=== PATIENT | female | born 1980 | race Caucasian/White ===

== ENCOUNTER → 2017-01-30 | Outpatient (CLI) | payer BC ==
--- NOTE | 2017-01-30 13:46 | RAD ---
DATE: 01/30/17 EXAM: MAMMO KELLY SCREENING BILATERAL HISTORY: Routine screening COMPARISON: None available, this is a baseline exam. This study was interpreted with the benefit of Computerized Aided Detection (CAD). TECHNIQUE: Routine 2-D and 3-D screening mammograms of both breasts are obtained. FINDINGS: Breast Density: HETERO The breast parenchyma is heterogenously dense, which could reduce sensitivity of mammography. Breast parenchyma level C.. There is a area of asymmetric density in the left outer breast which is a confluent shadow. There is however a small nodule in the outer left breast, best seen on CC tomographic image #13 No suspicious clustered microcalcifications or architectural distortion seen. Skin and nipples are intact IMPRESSION: Tiny nodule in the outer left breast. This is likely a cyst or lymph node. Ultrasound of the left breast may be obtained for confirmation. BI-RADS CATEGORY: 0 INCOMPLETE: NEED ADDITIONAL IMAGING EVALUATION AND/OR PRIOR MAMMOGRAMS FOR COMPARISON. RECOMMENDED FOLLOW-UP: ADD ADDITIONAL IMAGING. Left breast ultrasound PQRS compliance statement: Patient information was entered into a reminder system with a target due date for the next mammogram. Mammography is a sensitive method for finding small breast cancers, but it does not detect them all and is not a substitute for careful clinical examination. A negative mammogram does not negate a clinically suspicious finding and should not result in delay in biopsying a clinically suspicious abnormality. "Our facility is accredited by the [employer]ammography [employer]."
== END | disposition home or self-care (01) ==
LOC: MAMMO 08:40
PROVIDERS: ATTEND Nurse Practitioner Family
DX: Z12.31 Encounter for screening mammogram for malignant neoplasm of breast (principal)
CPT/HCPCS: 77063; G0202; 77067

== ENCOUNTER → 2017-02-09 | Outpatient (CLI) | payer BC ==
--- NOTE | 2017-02-09 09:03 | RAD ---
LEFT BREAST SONOGRAPHY Clinical indications: Further evaluation of nodule seen within the lateral aspect of left breast. Comparison: Mammogram dated January 30, 2017. Findings: High-resolution sonography of the lateral one half left breast was performed. At the 1:00 position 8 cm the nipple, a 6 mm lymph node is seen which demonstrates normal lymph node sonographic architecture. This corresponds to mammographic finding. IMPRESSION: Benign-appearing intramammary lymph node of the 1:00 position left breast. This is benign finding. Recommend routine screening mammography in one year. BI-RADS Category 3 benign finding. The patient information was entered into the data reminder system with a target due date for the next mammogram of January 31, 2018.
== END | disposition home or self-care (01) ==
LOC: US 07:52
PROVIDERS: ATTEND Nurse Practitioner Family
DX: R92.8 Other abnormal and inconclusive findings on diagnostic imaging of breast (principal)
CPT/HCPCS: 76641

== ENCOUNTER → 2017-06-05 | Outpatient (CLI) | payer BC ==
--- NOTE | 2017-06-05 15:59 | RAD ---
3 views of the abdomen and pelvis 06/05/2017 Indication: Abdominal pain Comparison study: None Discussion: The bowel gas pattern is nonobstructive. No pneumoperitoneum is identified. No acute osseous changes are seen. Intrauterine device noted in the pelvis. Impression: No radiographic evidence of acute intra-abdominal abnormality
[2017-06-05 16:00] LABS: BASO % 0 % (0-3); EOS # 0.1 x10^3/uL (0.0-0.7); EOS % 1 % (0-3); HEMATOCRIT 38.3 % (36.0-47.0); HEMOGLOBIN 12.6 g/dL (12.0-15.5); LYMPH % 17 % (24-48); MEAN CORPUSCULAR HEMOGLOBIN 28 pg (25-35); MEAN CORPUSCULAR HGB CONC 33 g/dL (31-37); MEAN CORPUSCULAR VOLUME 84 fL (79-100); MONO # 0.9 x10^3/uL (0.0-1.1); MONO % 8 % (0-9); NEUT # 8.3 x10^3uL (1.8-7.7); NEUT % 73 % (31-73); PLATELET COUNT 236 x10^3/uL (140-400); RED BLOOD COUNT 4.58 x10^6/uL (3.50-5.40); RED CELL DISTRIBUTION WIDTH 13.7 % (11.5-14.5); WHITE BLOOD COUNT 11.3 x10^3/uL (4.0-11.0)
[2017-06-05 16:09] LABS: ALBUMIN 3.7 g/dL (3.4-5.0); ALBUMIN/GLOBULIN RATIO 0.9 (1.0-1.7); CALCIUM 8.8 mg/dL (8.5-10.1); CREATININE 0.8 mg/dL (0.6-1.0); GFR 79.9; POTASSIUM 3.8 mmol/L (3.5-5.1); TOTAL BILIRUBIN 0.3 mg/dL (0.2-1.0)
[2017-06-05 17:05] LABS: SEDIMENTATION RATE 31 (0-25)
== END | disposition home or self-care (01) ==
LOC: PMG 15:03
PROVIDERS: ATTEND Physician Assistant
DX: K57.92 Diverticulitis of intestine, part unspecified, without perforation or abscess without bleeding (principal); R10.30 Lower abdominal pain, unspecified
CPT/HCPCS: 36415; 74021; 80053; 82150; 83690; 85025; 85651

== ENCOUNTER → 2017-06-08 | Outpatient (CLI) | payer BC ==
[~2017-06-08] MED LIST: IOHEXOL 240 MG/ML 50ML VIAL. ONE; IOHEXOL 300 MG/ML 75 ML VIAL. IV ONE
--- NOTE | 2017-06-08 16:14 | RAD ---
Ultrasound pelvis with transvaginal Clinical indication: Pelvic pain. Comparison: CT abdomen and pelvis 06/02/2011, ultrasound 06/01/2011. Findings: Uterus measures 8.6 x 4.6 x 5.8 cm. Endometrium is normal thickness for age measuring 0.4 cm. There are few cervical nabothian cysts. Intrauterine device is noted. Right ovary measures 3.4 x 2.3 x 1.8 cm with normal color Doppler imaging. Left ovary measures 2.4 x 1.9 x 2.2 cm with normal color Doppler imaging. No significant pelvic free fluid. Impression: 1. Intrauterine device. 2. Otherwise unremarkable pelvic sonogram.
--- NOTE | 2017-06-09 10:59 | RAD ---
EXAM: CT ABDOMEN/PELVIS WITH CONTRAST. HISTORY: Lower abdominal pain. History of diverticulitis. TECHNIQUE: Computed tomography of the abdomen and pelvis was performed after the intravenous administration of 75 mL Omnipaque 300. COMPARISON: June 02, 2011. FINDINGS: Lung windows through the visualized portions of the bases reveal mild atelectasis. Bone windows reveal no suspicious lesions. Wall thickening and inflammation about the sigmoid colon indicate moderate acute diverticulitis. The involved side appears just distal to the prior region of involvement on the study of 2011. There is no drainable collection or free perforation. There is no obstruction. The appendix is not inflamed. The liver, gallbladder, kidneys, adrenal glands, pancreas and spleen are unremarkable. There are no pathologically enlarged lymph nodes. Note is made of a circumaortic left renal vein. An intrauterine device is in expected position. IMPRESSION: 1. Moderate acute distal sigmoid diverticulitis. No drainable collection. These findings were called to Alison by Anthony Escobar on 06/09/2017 at 10:40 AM. *One or more of the following individualized dose reduction techniques were utilized for this examination: 1. Automated exposure control. 2. Adjustment of the mA and/or kV according to patient size. 3. Use of iterative reconstruction technique. Electronically signed by: Merly Escobar MD (06/09/2017 10:55 AM) [facility]
== END | disposition home or self-care (01) ==
LOC: US 14:44
PROVIDERS: ATTEND Obstetrics & Gynecology
DX: N88.8 Other specified noninflammatory disorders of cervix uteri (principal); K57.32 Diverticulitis of large intestine without perforation or abscess without bleeding; Z97.5 Presence of (intrauterine) contraceptive device
CPT/HCPCS: 74177; 76830; 76856; Q9966; Q9967

== ENCOUNTER 2018-04-30 19:44 | Emergency (ER) | payer BC ==
--- NOTE | 2018-04-30 19:59 | ED.ADGEN ---
Past History Past Medical History: Sinusitis Adult General Chief Complaint Chief Complaint ".. I am been sick off and on for a month.. I got headache, face pain.. fever, chills.. I went to [facility]... they started me on amoxicillin.. .. but I am not better...." HPI HPI Patient is a 37 year old female who presents with above hx of upper respiratory infection, face pain, headaches, congestion and malaise. Pt. seen in [facility] [address] and started on Amoxicillin. Pt. reports min. improvement and reports no improvement. No travel, or specific ill contacts. Pt. does not follow with a primary. Pt. denies hx of immunosuppression. Review of Systems Review of Systems Constitutional: Complaints of fever or chills [] Eyes: Denies change in visual acuity, redness, or eye pain [] HENT: Complaints of nasal congestion and sore throat [] Respiratory: Complaints of a nonproductive cough Cardiovascular: No additional information not addressed in HPI [] GI: Denies abdominal pain, nausea, vomiting, bloody stools or diarrhea [] : Denies dysuria or hematuria [] Musculoskeletal: Denies back pain or joint pain [] Integument: Denies rash or skin lesions [] Neurologic: Denies headache, focal weakness or sensory changes [] Endocrine: Denies polyuria or polydipsia [] All other systems were reviewed and found to be within normal limits, except as documented in this note. Family History Family History Noncontributory Current Medications Current Medications Current Medications Medications (Trade) Dose Ordered Sig/Tammie Start Time Stop Time Status Last Admin Dose Admin Ondansetron HCl (Zofran Odt) 4 mg 1X ONCE 04/30/18 21:00 04/30/18 21:01 DC 04/30/18 20:53 4 MG Prednisone (Prednisone) 60 mg 1X ONCE 04/30/18 22:15 04/30/18 22:16 DC 04/30/18 22:20 60 MG Allergies Allergies Allergies Coded Allergies Type Severity Reaction Last Updated Verified Sulfa (Sulfonamide Antibiotics) Allergy Unknown 06/08/17 Yes Physical Exam Physical Exam Constitutional: Well developed, well nourished, moderately acute distress, non- toxic appearance. [] HENT: Normocephalic, atraumatic, bilateral external ears normal, oropharynx moist, injected pharynx, postnasal drainage, no oral exudates, nose swollen turbinates and rhinorrhea Eyes: PERRLA, EOMI, conjunctiva normal, no discharge. [] Neck: Normal range of motion, no tenderness, supple, no stridor. [] Cardiovascular:Heart rate regular rhythm, no murmur [] Lungs & Thorax: Bilateral breath sounds equal at apex with scattered wheezes auscultation [] Abdomen: Bowel sounds normal, soft, no tenderness, no masses, no pulsatile masses. [] Skin: Warm, dry, no erythema, no rash. [] Back: No tenderness, no CVA tenderness. [] Extremities: No tenderness, no cyanosis, no clubbing, ROM intact, no edema. [] Neurologic: Alert and oriented X 3, normal motor function, normal sensory function, no focal deficits noted. [] Psychologic: Affect anxious, judgement normal, mood normal. [] Current Patient Data Lab Results Laboratory Tests Test 04/30/18 20:30 Influenza Type A (Rapid) Negative (NEGATIVE) Influenza Type B (Rapid) Negative (NEGATIVE) Group A Streptococcus Rapid Negative (NEGATIVE) EKG EKG [] Radiology/Procedures Radiology/Procedures CT of head shows no shift, mass, edema, bleed, or fracture. Facial sections of CT show no obvious occluded sinus, does have mild chronic paranasal thicken mucosa. Does have mild opacification of maxillary sinuses greater on the right. Course & Med Decision Making Course & Med Decision Making Pertinent Labs and Imaging studies reviewed. (See chart for details) Pt. declines spinal tap. Exhibit UC[employer] capacity. Continue current antibiotics as previous directed. Do nasal saline rinses several times a day. Apply Flonase 2 sprays at day. Take prednisone 50 mg a day for 5 days. Followup with primary. Tylenol and ibuprofen for discomfort. Benadryl 50 up 4 x day may be helpful Afrin spray at night for congestion. Marked discomfort Vicoprofen. Return if any concerns. Follow up with primary. Consider ENT follow up. [] Final Impression Final Impression 1. Fever[]Hx. 2. Viral Syndrome 3. Mild Sinusitis- suspect viral- No occluded sinus or air fluid levels Dragon Disclaimer Dragon Disclaimer This electronic medical record was generated, in whole or in part, using a voice recognition dictation system. Dragon Disclaimer This chart was dictated in whole or in part using Voice Recognition software in a busy, high-work load, and often noisy Emergency Department environment. It may contain unintended and wholly unrecognized errors or omissions. Discharge Summary Visit Information Final Diagnosis Problems Medical Problems: (1) Viral syndrome Status: Acute Brief Hospital Course Allergies Allergies Coded Allergies Type Severity Reaction Last Updated Verified Sulfa (Sulfonamide Antibiotics) Allergy Unknown 06/08/17 Yes Lab Results Laboratory Tests Test 04/30/18 20:30 Influenza Type A (Rapid) Negative (NEGATIVE) Influenza Type B (Rapid) Negative (NEGATIVE) Group A Streptococcus Rapid Negative (NEGATIVE) Brief Hospital Course Ms. Be is a 37 old female who presented with fever, sinus congestion and facial pain. Recently started on amoxicillin. Suspect Viral - cause symptoms. Patient to use saline rinses Flonase, Afrin, Benadryl, continue antibiotics previous directed. Follow-up primary care. Return if any concerns. Discharge Information Condition at Discharge: Improved, Stable Disposition/Orders: D/C to Home Dischare Medications Current Medications Ondansetron HCl (Zofran Odt) 4 mg 1X ONCE PO Last administered on 04/30/18at 20: 53; Admin Dose 4 MG; Start 04/30/18 at 21:00; Stop 04/30/18 at 21:01; Status DC Prednisone (Prednisone) 60 mg 1X ONCE PO Last administered on 04/30/18at 22:20; Admin Dose 60 MG; Start 04/30/18 at 22:15; Stop 04/30/18 at 22:16; Status DC Active Scripts Active Hydrocodone-Ibuprofen 7.5-200 (Hydrocodone/Ibuprofen) 1 Each Tablet 1 Tab PO PRN Q6HRS PRN Prednisone 50 Mg Tablet 50 Mg PO DAILY 5 Days CLIVE CINTRON MD Apr 30, 2018 19:59
[2018-04-30] MEDS ORDERED: ONDANSETRON ODT 4 MG TAB.RAPDIS PO ONE (21:00)
--- NOTE | 2018-04-30 21:13 | RAD ---
Examination: CT HEAD AND MAXILLOFACIAL WO History: SINUS PAIN AND PRESSURE ALL OVER, HEADACHE
TREATED FOR SINUS INFECTION X 5 DAYS AGO, FEELS WORSE Comparison/Correlation: None Findings: Axial images of the head and maxillofacial structures were obtained. Sagittal and coronal reformatted images of the maxillofacial structures were provided. Ventricles are normal size. No intracranial hemorrhage, midline shift, or mass effect. No extra-axial fluid collections. Globes and optic nerves are unremarkable. Patchy opacification of ethmoid air cells noted. Mastoid air cells are clear. Minimal cerumen bilaterally seen in the external auditory canals. Mild opacification of the maxillary sinuses noted greater on the right. Sphenoid sinuses are clear. Hypoplastic frontal sinuses are clear. Soft tissues about the maxillofacial structures are unremarkable. Temporomandibular joints are unremarkable. Impression: Mild chronic paranasal sinusitis. No fluid levels within paranasal sinuses to suggest acute sinusitis. No intracranial hemorrhage. Electronically signed by: Buck Nelson MD (04/30/2018 9:08 PM) [facility]
[2018-04-30 21:25] LABS: INFLUENZA A PATIENT NEGATIVE (NEGATIVE); INFLUENZA B PATIENT NEGATIVE (NEGATIVE)
[2018-04-30] MEDS ORDERED: PRED50TA PO (21:53)
[2018-04-30] MEDS ORDERED: HYDR-1179 PO (21:54)
[2018-04-30 22:10] VITALS: BP 122/70
[2018-04-30] MEDS ORDERED: predniSONE 20 MG TABLET PO ONE (22:15)
== END 2018-04-30 22:20 | disposition home or self-care (01) ==
LOC: ER 19:44
DX: B34.9 Viral infection, unspecified (principal); J32.9 Chronic sinusitis, unspecified; Z88.2 Allergy status to sulfonamides
CPT/HCPCS: 70450; 70486; 87070; 87804; 87880; 99284; J7512; Q0162

== ENCOUNTER 2018-12-19 07:34 | Emergency (ER) | payer BC ==
[~2018-12-19] VITALS: Ht 162.6 cm; Wt 86.2 kg
[~2018-12-19 07:34] MED LIST changes: +HYDR-1179 PO; -IOHEXOL 240 MG/ML 50ML VIAL. ONE; -IOHEXOL 300 MG/ML 75 ML VIAL. IV ONE; +PRED50TA PO
[2018-12-19] MEDS ORDERED: KETOROLAC 30 MG/ML VIAL. IV ONE (08:00)
[2018-12-19] MEDS ORDERED: ONDANSETRON PF 4 MG/2 ML VIAL. IV ONE (08:00)
[2018-12-19] MEDS ORDERED: IV NORMAL SALINE 1,000ML 1,000 ML IV ONE (08:00)
--- NOTE | 2018-12-19 08:04 | PHYS DOC ---
Past History Past Medical History: Sinusitis Past Surgical History: , Tonsillectomy Alcohol Use: Occasionally Drug Use: None Adult General Chief Complaint Chief Complaint: abdominal pain HPI HPI 38-year-old female presents with left lower quadrant abdominal pain. This pain started yesterday morning. She didn't with the pain throughout the day. It has increased in intensity. Patient has a history of diverticulitis at least one episode per year for the last several years. She feels like the pain is similar. It is sharp and stabbing, moderate in intensity. She has also had bright bloody stool with some clots. Her last colonoscopy was 5 years ago. She denies fever or chills. She has some nausea, but no vomiting. Review of Systems Review of Systems Constitutional: Denies fever or chills [] Eyes: Denies change in visual acuity, redness, or eye pain [] HENT: Denies nasal congestion or sore throat [] Respiratory: Denies cough or shortness of breath [] Cardiovascular: No additional information not addressed in HPI [] GI: LLQ abdominal pain, nausea, bloody stools. [] : Denies dysuria or hematuria [] Musculoskeletal: Denies back pain or joint pain [] Integument: Denies rash or skin lesions [] Neurologic: Denies headache, focal weakness or sensory changes [] Endocrine: Denies polyuria or polydipsia [] All other systems were reviewed and found to be within normal limits, except as documented in this note. Current Medications Current Medications Current Medications Medications (Trade) Dose Ordered Sig/Tammie Start Time Stop Time Status Last Admin Dose Admin Sodium Chloride 1,000 ml @ 1,000 mls/hr 1X ONCE 12/19/18 08:00 12/19/18 08:59 Allergies Allergies Allergies Coded Allergies Type Severity Reaction Last Updated Verified Sulfa (Sulfonamide Antibiotics) Allergy Unknown 06/08/17 Yes Physical Exam Physical Exam Constitutional: Well developed, well nourished, no acute distress, non-toxic a ppearance. [] HENT: Normocephalic, atraumatic, bilateral external ears normal, oropharynx moist, no oral exudates, nose normal. [] Eyes: PERRLA, EOMI, conjunctiva normal, no discharge. [] Neck: Normal range of motion, no tenderness, supple, no stridor. [] Cardiovascular:Heart rate regular rhythm, no murmur [] Lungs & Thorax: Bilateral breath sounds clear to auscultation [] Abdomen: Bowel sounds normal, soft, moderate LLQ tenderness, no masses, no pulsatile masses. [] Skin: Warm, dry, no erythema, no rash. [] Back: No tenderness, no CVA tenderness. [] Extremities: No tenderness, no cyanosis, no clubbing, ROM intact, no edema. [] Neurologic: Alert and oriented X 3, normal motor function, normal sensory function, no focal deficits noted. [] Psychologic: Affect normal, judgement normal, mood normal. [] EKG EKG [] Radiology/Procedures Radiology/Procedures [] Impressions: Examination: CT of the abdomen pelvis with IV contrast HISTORY: History of left lower quadrant abdominal pain COMPARISON: 06/08/2017 TECHNIQUE: Axial CT images of the abdomen pelvis were performed with IV contrast. Coronal and sagittal reformats are performed Exposure: One or more of the following individualized dose reduction techniques were utilized for this examination: 1. Automated exposure control 2. Adjustment of the mA and/or kV according to patient size 3. Use of iterative reconstruction technique FINDINGS: No evidence of free air identified in the abdomen. Mild degree attenuation noted in the liver likely hepatic steatosis. The spleen, adrenals grossly appears unremarkable. The gallbladder is mildly distended. The stomach is mildly distended. The visualized pancreas grossly appears unremarkable. The small bowel is nondilated. The appendix is normal. Feces and gas noted in the colon. Multiple colonic diverticulosis identified. There is moderate inflammatory fat stranding identified in the descending colon with moderate wall thickening likely acute diverticulitis/colitis. Urinary bladder is mildly distended. The bilateral kidneys enhance symmetrically. The caliber of the aorta grossly appears unremarkable. Intrauterine contraceptive device is identified. Small sclerotic densities identified in the left and right femoral head likely bone islands similar to prior exam. IMPRESSION: 1. Moderate inflammatory fat stranding identified about the descending colon with moderate thickening of the descending colon wall likely acute diverticulitis with underlying colitis. 2. Mild hepatic steatosis. Electronically signed by: Fercho Gonsalez MD (12/19/2018 9:17 AM) [place] [id number] DICTATED AND SIGNED BY: FERCHO GONSALEZ MD DATE: 12/19/18 0917 CC: TALIA ALAS DO; PCP,UNKNOWN ~ Course & Med Decision Making Course & Med Decision Making Pertinent Labs and Imaging studies reviewed. (See chart for details) The patient's CT does confirm diverticulitis. Her labs are unremarkable. The patient already has a prescription called in for Flagyl and Cipro. I believe this is a reasonable treatment strategy. She is stable for discharge at this time. The patient has declined narcotic pain medications. She was given Toradol in the ED and this was effective. [] Dragon Disclaimer Dragon Disclaimer This electronic medical record was generated, in whole or in part, using a voice recognition dictation system. Departure Departure: Impression: Primary Impression: Diverticulitis Disposition: HOME, SELF-CARE Condition: STABLE Referrals: PCP,UNKNOWN (PCP) Patient Instructions: Diverticulitis, [id number] TALIA ALAS DO Dec 19, 2018 08:04
[2018-12-19 08:26] LABS: BASO % 0 % (0-3); EOS # 0.1 x10^3/uL (0.0-0.7); EOS % 1 % (0-3); HEMATOCRIT 41.4 % (36.0-47.0); HEMOGLOBIN 13.6 g/dL (12.0-15.5); LYMPH # 1.3 x10^3/uL (1.0-4.8); LYMPH % 13 % (24-48); MEAN CORPUSCULAR HEMOGLOBIN 28 pg (25-35); MEAN CORPUSCULAR HGB CONC 33 g/dL (31-37); MEAN CORPUSCULAR VOLUME 85 fL (79-100); MONO # 0.7 x10^3/uL (0.0-1.1); MONO % 7 % (0-9); NEUT # 7.8 x10^3uL (1.8-7.7); NEUT % 79 % (31-73); PLATELET COUNT 225 x10^3/uL (140-400); RED BLOOD COUNT 4.89 x10^6/uL (3.50-5.40); RED CELL DISTRIBUTION WIDTH 14.4 % (11.5-14.5)
[2018-12-19 08:28] VITALS: BP 129/80
[2018-12-19] MEDS ORDERED: IOHEXOL 300 MG/ML 75 ML VIAL. IV ONE (08:30)
[2018-12-19 08:35] LABS: ALBUMIN 3.8 g/dL (3.4-5.0); ALBUMIN/GLOBULIN RATIO 0.9 (1.0-1.7); CREATININE 0.8 mg/dL (0.6-1.0); GFR 79.4; POTASSIUM 3.9 mmol/L (3.5-5.1); TOTAL BILIRUBIN 0.6 mg/dL (0.2-1.0); TOTAL PROTEIN 8.1 g/dL (6.4-8.2)
--- NOTE | 2018-12-19 09:20 | RAD ---
Examination: CT of the abdomen pelvis with IV contrast HISTORY: History of left lower quadrant abdominal pain COMPARISON: 06/08/2017 TECHNIQUE: Axial CT images of the abdomen pelvis were performed with IV contrast. Coronal and sagittal reformats are performed Exposure: One or more of the following individualized dose reduction techniques were utilized for this examination: 1. Automated exposure control 2. Adjustment of the mA and/or kV according to patient size 3. Use of iterative reconstruction technique FINDINGS: No evidence of free air identified in the abdomen. Mild degree attenuation noted in the liver likely hepatic steatosis. The spleen, adrenals grossly appears unremarkable. The gallbladder is mildly distended. The stomach is mildly distended. The visualized pancreas grossly appears unremarkable. The small bowel is nondilated. The appendix is normal. Feces and gas noted in the colon. Multiple colonic diverticulosis identified. There is moderate inflammatory fat stranding identified in the descending colon with moderate wall thickening likely acute diverticulitis/colitis. Urinary bladder is mildly distended. The bilateral kidneys enhance symmetrically. The caliber of the aorta grossly appears unremarkable. Intrauterine contraceptive device is identified. Small sclerotic densities identified in the left and right femoral head likely bone islands similar to prior exam. IMPRESSION: 1. Moderate inflammatory fat stranding identified about the descending colon with moderate thickening of the descending colon wall likely acute diverticulitis with underlying colitis. 2. Mild hepatic steatosis. Electronically signed by: Fercho Gonsalez MD (12/19/2018 9:17 AM) [facility]
== END 2018-12-19 10:00 | disposition home or self-care (01) ==
LOC: ER 07:34
DX: K57.32 Diverticulitis of large intestine without perforation or abscess without bleeding (principal); K76.0 Fatty (change of) liver, not elsewhere classified; Z98.890 Other specified postprocedural states; Z88.2 Allergy status to sulfonamides
CPT/HCPCS: 36415; 74177; 80053; 85025; 96374; 96375; 99285; J1885; J2405; Q9967; J7030

== ENCOUNTER → 2020-07-29 | Outpatient (CLI) | payer BC ==
[2020-07-29 21:14] LABS: FSH 2.9 mIU/mL (.); LUTEINIZING HORMONE 10.1 mIU/mL (.)
[2020-07-29 22:14] LABS: ESTRADIOL LEVEL 266.3 pg/mL (.)
[2020-07-30 12:17] LABS: INSULIN LEVEL 11.1 uIU/mL (2.6-24.9)
[2020-08-03 08:08] LABS: TESTOSTERONE FREE 0.24 ng/dL (0.10-0.85); TESTOSTERONE TOTAL 11 ng/dL (8-48)
[2020-08-06 13:09] LABS: DHEA 203 ng/dL (31-701)
== END ==
LOC: LAB 08:03
PROVIDERS: ATTEND Obstetrics & Gynecology
DX: Z01.419 Encounter for gynecological examination (general) (routine) without abnormal findings (principal); L70.9 Acne, unspecified
CPT/HCPCS: 36415; 82626; 82670; 82947; 83001; 83002; 83525; 84402; 84403

== ENCOUNTER → 2020-08-05 | Outpatient (CLI) | payer BC ==
--- NOTE | 2020-08-06 18:45 | RAD ---
DATE: 08/05/2020 EXAM: MAMMO KELLY SCREENING BILATERAL HISTORY: Screening COMPARISON: 01/30/2017 This study was interpreted with the benefit of Computerized Aided Detection (CAD). Breast Density: HETERO The breast parenchyma is heterogenously dense, which could reduce sensitivity of mammography. Breast parenchyma level C. FINDINGS: There is a 10 mm nodule with questionable architectural distortion in the central posterior left breast, 9 mm posterior to the nipple, best seen on tomosynthesis image 31. There is an adjacent 5 mm nodule with questionable architectural distortion in the central posterior left breast 11 mm posterior to the nipple, just medial to the nipple on the same image. There are other unchanged circumscribed bilateral benign-appearing masses. No suspicious calcification or architectural distortion. IMPRESSION: 2 nodules in the posterior left breast with possible architectural distortion. Recommend spot compression CC view and possible ultrasound of the left breast further evaluate. BI-RADS CATEGORY: 0 INCOMPLETE: NEEDS ADDITIONAL IMAGING EVALUATION AND/OR PRIOR MAMMOGRAMS FOR COMPARISON. RECOMMENDED FOLLOW-UP: ADD ADDITIONAL IMAGING PQRS compliance statement: Patient information was entered into a reminder system with a target due date for the next mammogram. Mammography is a sensitive method for finding small breast cancers, but it does not detect them all and is not a substitute for careful clinical examination. A negative mammogram does not negate a clinically suspicious finding and should not result in delay in biopsying a clinically suspicious abnormality. "Our facility is accredited by the [employer] Mammography Program."
== END ==
LOC: MAMMO 07:53
PROVIDERS: ATTEND Obstetrics & Gynecology
DX: Z12.31 Encounter for screening mammogram for malignant neoplasm of breast (principal); N63.42 Unspecified lump in left breast, subareolar
CPT/HCPCS: 77063; 77067

== ENCOUNTER → 2020-08-26 | Outpatient (CLI) | payer BC ==
--- NOTE | 2020-08-26 15:29 | RAD ---
CLINICAL INDICATION: STEPHANIE GARCIA, who is 40 years of age, presents for further evaluation of a fin ding noted on her most recent screening mammographic examination. On that examination an asymmetry wa s reported within the left breast posterior depth centrally COMPARISON: Prior mammographic imaging 08/05/20, 02/09/2017, 01/30/2017 TECHNIQUE: Diagnostic views of the left breast were obtained, utilizing digital technique. BREAST COMPOSITION: The breast tissue is heterogenously dense, which could obscure detection of small masses. MAMMOGRAM FINDINGS: Spot compression and full-field ML views of the left breast redemonstrates a focal asymmetry at the p osterior depth. This was further assessed by ultrasound. ULTRASOUND FINDINGS: Targeted ultrasound of the mammographic area of concern was performed. Parenchymal tissue of normal echotexture is present. Normal-appearing lymph node is seen in the left axilla. A 0.7 x 0.3 cm hypoechoic nodule is seen with central increased echogenicity at the 12:00 pos ition 5 cm from the nipple most consistent with lymph node. IMPRESSION: 1. Left breast probably benign asymmetry for which follow up is recommended. RECOMMENDATION: In the absence of new clinical symptoms or change in physical exam, short term follow up diagnostic e xamination is recommended in 6 months to assess for interval stability. BIRADS 3: PROBABLY BENIGN Electronically signed by: Huang Medina MD (08/26/2020 3:27 PM) [facility]
== END ==
LOC: MAMMO 13:02
PROVIDERS: ATTEND Obstetrics & Gynecology
DX: R92.2 Inconclusive mammogram (principal); N63.22 Unspecified lump in the left breast, upper inner quadrant
CPT/HCPCS: 76641; 77065

== ENCOUNTER → 2021-02-07 | Outpatient (CLI) | payer BC ==
--- NOTE | 2021-02-07 15:20 | RAD ---
US BREAST LT, MG DIGITAL UNILAT DIAGNOSTIC MAMMO WITH KELLY HISTORY: The patient is 40 years old and is seen for Reason: 6 MONTH FOLLOW UP / Spl. Instructions: / History: . COMPARISON: Ultrasound and mammogram August 26, 2020. Mammogram August 05, 2020. Mammogram and January 30, 2017 TECHNIQUE: CC and MLO views of left breast were obtained. As well as spot compression view. Images we re processed by the [employer] computer-aided detection system. Ultrasound was also performed of th e left breast. DENSITY: The breast parenchyma is heterogeneously dense. This may lower the sensitivity of mammograph y. FINDINGS: Right breast mammogram: No suspicious microcatheter ossifications, mass or architectural distortion. Left breast mammogram: Unchanged asymmetry within the left outer breast on CC view. The asymmetry per sists with spot compression view. Overall the asymmetry is similar compared to 2017. Well-circumscrib ed masses within the left upper outer breast, unchanged and most likely intramammary lymph nodes. Left breast ultrasound: Left breast intramammary lymph node 12:00 position 5 cm from the nipple measu res 0.5 x 0.3 cm. Small complicated cystic lesion within the left breast 1:00 position 4 cm from the nipple measures 0.3 x 0.4 cm corresponding with mammographic finding. Dense fibroglandular tissue wit hin the left outer breast corresponding with mammographic finding. IMPRESSION: Unchanged asymmetry within the left outer breast, most likely overlapping dense fibroglan dular tissue. Similar overall appearance compared to 2017. Recommend annual screening mammograms per [employer] guidelines. Target date of follow- up July 2020 for bilateral mammograms. BI-RADS category 2 Benign Patient entered into a reminder system for annual screening mammogram. Electronically signed by: Artuor Toledo DO (02/07/2021 3:18 PM) [id number]
== END ==
LOC: MAMMO 13:14
PROVIDERS: ATTEND Obstetrics & Gynecology
DX: Z09 Encounter for follow-up examination after completed treatment for conditions other than malignant neoplasm (principal); N60.12 Diffuse cystic mastopathy of left breast; N63.42 Unspecified lump in left breast, subareolar
CPT/HCPCS: 76641; 77065; G0279; 77061

== ENCOUNTER → 2021-05-31 | Outpatient (CLI) | payer BC ==
--- NOTE | 2021-05-31 17:07 | RAD ---
EXAM: Bilateral knees, 3 views. HISTORY: Pain. COMPARISON: None. FINDINGS: Right knee: 3 views of the right knee are obtained. There is mild medial compartment spurring. There is no fracture, dislocation or subluxation. There is trace joint fluid. Left knee: 3 views of the left knee are obtained. There is no fracture, dislocation or subluxation. IMPRESSION: Mild medial compartment osteoarthritis of the right knee. No acute osseous finding. Electronically signed by: Melanie Moses MD (05/31/2021 5:04 PM) [id number]
== END ==
LOC: RAD 15:06
PROVIDERS: ATTEND Physician Assistant
DX: M17.11 Unilateral primary osteoarthritis, right knee (principal); M25.561 Pain in right knee; M25.562 Pain in left knee
CPT/HCPCS: 73562-50

== ENCOUNTER 2021-08-19 17:28 | Emergency (ER) | payer BC ==
[2021-08-19] MEDS ORDERED: ONDANSETRON PF 4 MG/2 ML VIAL. ONE (20:17)
[2021-08-19] MEDS ORDERED: oxyCODONE/APAP 5/325 1 TAB TABLET ONE (21:08)
[2021-08-19] MEDS ORDERED: ACETAMINOPHEN/CODEINE 300/30MG 4TABLET STARTPACK. PO ONE (21:08)
[2021-08-19] MEDS ORDERED: ONDANSETRON 4MG ODT 4TABLET STARTPACK. PO ONE (21:09)
[2021-08-19] MEDS ORDERED: AMOXICILLIN/K CLAV 875/125MG TABLET. ONE (21:09)
[2021-08-20 07:46] LABS: CALCIUM 8.8 mg/dL (8.5-10.1); CREATININE 0.8 mg/dL (0.6-1.0); GFR 78.3; POTASSIUM 4.3 mmol/L (3.5-5.1)
[2021-08-20 07:47] LABS: HEMATOCRIT 39.8 % (36.0-47.0); HEMOGLOBIN 12.9 g/dL (12.0-15.5); LYMPH % 11 % (24-48); MEAN CORPUSCULAR HEMOGLOBIN 28 pg (25-35); MEAN CORPUSCULAR HGB CONC 32 g/dL (31-37); MEAN CORPUSCULAR VOLUME 86 fL (79-100); MONO % 7 % (0-9); NEUT % 81 % (31-73); PLATELET COUNT 199 x10^3/uL (140-400); RED BLOOD COUNT 4.63 x10^6/uL (3.50-5.40); WHITE BLOOD COUNT 13.8 x10^3/uL (4.0-11.0)
[2021-08-20 07:48] LABS: BASO % 0 % (0-3); CLARITY,URINE CLEAR; COLOR,URINE YELLOW; EOS # 0.1 x10^3/uL (0.0-0.7); EOS % 1 % (0-3); GLUCOSE,URINE NEG (NEG); LYMPH # 1.5 x10^3/uL (1.0-4.8); NEUT # 11.2 x10^3uL (1.8-7.7); NITRITE,URINE NEG (NEG); UROBILINOGEN,URINE 0.2 mg/dL (0.2 mg/dL)
[2021-08-20 07:49] LABS: BACTERIA,URINE FEW /HPF (0-FEW); SQUAMOUS EPITHELIAL CELL,UR MOD /LPF
--- NOTE | 2021-08-22 08:01 | RAD ---
EXAM: CT Chest, Abdomen and Pelvis without IV contrast CLINICAL HISTORY: LUQ pain, fever, rectal bleeding COMPARISON: None. TECHNIQUE: Helical CT of the chest, abdomen and pelvis was performed without intravenous contrast. A xial, coronal and sagittal reformatted images were generated. ---PQRS compliance statement - One or more of the following individualized dose reduction techniques were utilized for this study: 1. Automated exposure control 2. Adjustment of the mA and/or kV according to patient size 3. Use of iterative reconstruction technique--- FINDINGS: Lack of intravenous contrast limits evaluation of solid organs, vasculature, and lymph nodes. Chest: Lung bases are clear. Abdomen and Pelvis: No focal liver lesion. Gallbladder is normal. Pancreas, spleen and adrenal glands are unremarkable. N o focal renal lesion. No hydronephrosis. No hydroureter. There is infiltration about the proximal descending colon in the region of several diverticula withou t loculated fluid collection. Colonic diverticula of the left colon and sigmoid colon. IUD is seen. A mayte is normal in caliber. Moderate colonic stool content. Appendix is normal. No bowel obstruction. No abdominal pelvic lymphadenopathy. No abdominal pelvic ascites. Aorta is normal in caliber. Bones: Trace anterolisthesis of L5 on S1. Scattered sclerotic foci, bone islands. IMPRESSION: 1. Acute diverticulitis of the proximal descending colon without loculated fluid collection. 2. IUD is seen. Electronically signed by: Huang Medina MD (08/19/2021 10:01 PM) [email or web address]
== END 2021-08-19 21:23 | disposition home or self-care (01) ==
LOC: ER 17:28
DX: K57.32 Diverticulitis of large intestine without perforation or abscess without bleeding (principal); Z98.890 Other specified postprocedural states; Z88.2 Allergy status to sulfonamides
CPT/HCPCS: 36415; 74176; 80048; 81001; 83690; 85025; 87086; 99284